=== PATIENT | female | born 1975 | race Two or more races ===

== ENCOUNTER 2025-02-23 10:48 | Emergency (ER) | payer OTHER ==
[~2025-02-23] VITALS: Ht 162.6 cm; Wt 76.0 kg
[2025-02-23 11:12] VITALS: BP 132/87; PULSE 98; RESP 17; TEMP 98; O2SAT 98
--- NOTE | 2025-02-23 11:26 | ED.PDOC ---
History of Present Illness HPI Comments A 49 YEAR OLD FEMALE PRESENTS TO THE ED WITH COMPLAINT OF INCISION WOUND RECHECK. PATIENT STATES SHE HAD A LUMPECTOMY DONE ON HER RIGHT BREAST DUE TO HAVING BREAST CANCER ON 02/04/2025 AT [facility]. PATIENT REPORTS SHE STARTED HAVING BLOOD DRAINAGE/FLUID TODAY, PROMPTING HER TO COME TO THE ED FOR A WOUND RECHECK. PATIENT DENIES FEVER, CHILLS, SHORTNESS OF BREATH, CHEST PAIN, ABDOMINAL PAIN, NAUSEA, VOMITING, HEADACHE, OR OTHER COMPLAINTS. NO OTHER SYMPTOMS OR MODIFYING FACTORS AT THIS TIME. PATIENT IS ALERT, ORIENTED X 4, AND HAS STEADY GAIT. Chief Complaint: Wound Check Time Seen by MD: 10:53 Reviewed Notes: Nurses Notes, Medications, Allergies Information Source: Patient Mode of Arrival: Ambulatory Severity: Mild, Moderate Timing: Days Duration: Since onset, Days Prehospital treatment: None Medication Refill: For: Other (INCISION WOUND RECHECK OF RIGHT BREAST ) Past Medical History PAST MEDICAL HISTORY: Cancer Surgical History (Other): BREAST LUMPECTOMY FACILITY MAINTENANCE HELPER History: No Pertinent FACILITY MAINTENANCE HELPER History Family History Family History: Reviewed,noncontributory to illness Social History Smoker: Non-Smoker Alcohol: Denies ETOH Use Drugs: Denies Drug Use Lives In: Home Constitutional: denies: chills, diaphoresis, fatigue, fever, malaise, sweats, weakness, others EENTM: denies: blurred vision, double vision, ear bleeding, ear discharge, ear drainage, ear pain, ear ringing, eye pain, eye redness, hearing loss, mouth pain, mouth swelling, nasal discharge, nose bleeding, nose congestion, nose pain, photophobia, tearing, throat pain, throat swelling, voice changes, others Respiratory: denies: cough, hemoptysis, orthopnea, SOB at rest, shortness of breath, SOB with excertion, stridor, wheezing, others Cardiovascular: denies: chest pain, dizzy spells, diaphoresis, Dyspnea on exertion, edema, irregular heart beat, left arm pain, lightheadedness, palpitations, PND, syncope, others Gastrointestinal: denies: abdomen distended, abdominal pain, blood streaked bowels, constipated, diarrhea, dysphagia, difficulty swallowing, hematemesis, melena, nausea, poor appetite, poor fluid intake, rectal bleeding, rectal pain, vomiting, others Genitourinary: denies: abnormal vagina bleeding, burning, dyspareunia, dysuria, flank pain, frequency, hematuria, incontinence, pain, , vagina discharge, urgency, others Neurological: denies: dizziness, fainting, headache, left sided numbness, left sided weakness, numbness, paresthesia, pre-existing deficit, right sided numbness, right sided weakness, seizure, speech problems, tingling, tremors, weakness, others Musculoskeletal: denies: back pain, gout, joint pain, joint swelling, muscle pain, muscle stiffness, neck pain, others Integumetry: reports: lesions, wounds; denies: bruises, change in color, change in hair/nails, dryness, laceration, lumps, rash, others Allergic/Immunocompromised: denies: Difficulty Healing, Frequent Infections, Hives, Itching, others Hematologic/Lymphatic: denies: anemia, blood clots, easy bleeding, easy bruising, swollen glands, others Endocrine: denies: excessive hunger, excessive sweating, excessive thirst, excessive urination, flushing, intolerance to cold, intolerance to heat, unexplained weight gain, unexplained weight loss, others Psychiatric: denies: anxiety, bipolar disorder, depression, hopeless, panic disorder, schizophrenia, sleepless, suicidal, others All Other Systems: Reviewed and Negative Physical Exam General Appearance: No Apparent Distress, Normal HEENT: Normal ENT Inspection, PERRL/EOMI, Pharynx Normal, TMs Normal Neck: Full Range of Motion, Non-Tender, Normal, Normal Inspection Respiratory: Chest Non-Tender, Lungs Clear, No Accessory Muscle Use, No Respiratory Distress, Normal Breath Sounds Cardiovascular: No Edema, No JVD, No Murmur, No Gallop, Normal Peripheral Pulses, Regular Rate/Rhythm Breast Exam: (R) Tenderness (TENDERNESS AND INCISION WOUND WITH LOCALIZED REDNESS, OOZING, AND HARDNESS NOTED. MILD BLOOD FLUID DRAINAGE, NO PUS DRAINAGE. ) Gastrointestinal: No Organomegaly, Non Tender, No Pulsatile Mass, Normal Bowel Sounds, Soft Genitalia: Deferred Pelvic: Deferred Rectal: Deferred Extremities: No calf tenderness, Normal capillary refill, Normal inspection, Normal range of motion, Non-tender, No pedal edema Musculoskeletal : Apperance: Normal Neurologic: Alert, wireworker II-XII nml as Tested, No Motor Deficits, Normal Affect, Normal Mood, No Sensory Deficits Cerebellar Function: Normal Reflexes: Normal Skin: Dry, Warm, Wounds (INCISION WOUND WITH BLOODY DRAINAGE ON RIGHT BREAST INCISION SITE, LOCALIZED REDNESS, HARDNESS AND ECCHYMOSIS. ) Peripheral Pulses: 2+ carotid (R), 2+ carotid (L) Lymphatic: No Adenopathy Was a procedure done? Was a procedure done?: No Differential Dx Considerations may include: INCISION WOUND RECHECK, WOUND INFECTION X-Ray, Labs, Meds, VS Vital Signs Date Time Temp Pulse Resp B/P (MAP) Pulse Ox O2 Delivery O2 Flow Rate FiO2 02/23/25 11:12 98 17 98 Room Air 02/23/25 11:12 98.0 78 18 132/87 (102) 98 98.0 02/23/25 10:59 99.5 78 18 141/94 (110) 98 99.5 X-Ray, Labs, Meds, VS Comment EXTERNAL MEDICAL RECORDS REVIEWED: [NONE] INDEPENDENT HISTORIANS: [NONE] SOCIAL DETERMINANTS OF HEALTH: [NONE] LABS ORDERED: NONE REVIEWED AND INTERPRETED RESULTS: NONE IMAGING ORDERED: NONE TREATMENTS ORDERED: PATIENT'S INCISION WOUND ON HER RIGHT BREAST WAS CLEANED USING NORMAL SALINE AND STERILE GAUZE WAS THEN APPLIED. PROCEDURES PERFORMED: NONE CRITICAL CARE TIME: NONE I HAVE DISCUSSED THE PATIENT WITH THE ATTENDING PHYSICIAN DR. HARRIS AND HE AGREES WITH THE PATIENT'S PLAN OF CARE. PATIENT WAS INFORMED THAT SINCE HER INCISION WOUND ON HER RIGHT BREAST APPEARS TO BE INFECTED THAT SHE WOULD NEED TO BE ADMITTED FOR ADMISSION. SINCE PATIENT IS A [facility] PATIENT, SHE WAS INFORMED THAT SHE WOULD NEED TO BE TRANSFERRED TO A [facility] FACILITY. PATIENT STATED SHE DID NOT WANT TO STAY TO BE TRANSFERRED AND DID NOT WANT ANY TREATMENT OR LABS [facility] AT THIS TIME. PATIENT STATED SHE WILL GO TO A [facility] FACILITY HERSELF AND WOULD LIKE TO SIGN OUT AMA. PATIENT WAS INFORMED OF THE RISKS AND CONSEQUENCES ASSOCIATED WITH SIGNING OUT AMA AND PATIENT IS STILL INSISTED ON LEAVING. PATIENT SIGNED OUT AMA PARENTS Time of 1ST Reevaluation: 11:40 Reevaluation 1ST: Unchanged Patient Education/Counseling: Diagnosis, Treatment Family Education/Counseling: Diagnosis, Treatment Departure 1 Departure Time of Disposition: 11:40 Impression: Primary Impression: Encounter for wound re-check Disposition: 07 LEFT AGAINST MEDICAL ADVICE Condition: Fair Critical Care Note Critical Care Time?: No Stability Stability form required: No I personally scribed for TARYN BIRD ([email or web address]) on 02/23/25 at 11:26. Electronically submitted by Maximiliano Reyna ([email or web address]). TARYN BIRD Feb 23, 2025 11:26
== END 2025-02-23 11:24 | disposition left against medical advice (07) ==
LOC: ER 10:48
DX: S21.001D Unspecified open wound of right breast, subsequent encounter (principal); Z48.00 Encounter for change or removal of nonsurgical wound dressing; Z85.3 Personal history of malignant neoplasm of breast; X58.XXXD Exposure to other specified factors, subsequent encounter